=== PATIENT | female | born 1990 | race Caucasian/White ===

== ENCOUNTER 2022-04-25 11:05 | Emergency (ER) | payer MEDICAID, SELFPAY ==
[2022-04-25 11:26] VITALS: BP 145/89; PULSE 82; RESP 18; TEMP 36.6; O2SAT 99; BMI 21.9
--- NOTE | 2022-04-25 12:17 | ED_ITS ---
HPI - Skin/Abscess/Foreign Bdy General: Chief complaint: Skin/Abscess/Foreign Body Stated complaint: xavi came out Time Seen by Provider: 04/25/22 11:39 Source: patient Mode of arrival: ambulatory Limitations: no limitations History of Present Illness: 31-year-old female presents emergency room with dehiscence of a Pfannenstiel incision from approximately 7 to 10 days ago. Wound is dehisced at the midline and to the left of the midline nurse some bloody drainage no active bleeding she has no signs of infection no purulent drainage she denies any fever sweats or chills. complaint: other Onset (ago): day(s) Tetanus up to date: yes Severity: mild Relieving factors: none Exacerbating factors: none Associated symptoms: Deny arthralgias, chills, cough, fever(s), itching, myalgias, nausea, rigidity, short of breath or vomiting Treatments prior to arrival: bandages Review of Systems Const: Denies: fever(s) or chills ENMT: Denies: throat pain, ear or mastoid pain, nasal discharge or nasal congestion Card: Denies: chest pain, edema, dyspnea on exertion or orthopnea Resp: Denies: dyspnea, productive cough or non-productive cough GI: Denies: nausea or vomiting : Denies: flank pain, difficulty voiding, dysuria, urinary frequency or urinary urgency Skin/Breast: Denies: rash or pruritus [facility] ED PFSH: Medical History (Updated 04/25/22 @ 13:27 by Sergio Frank DO) No pertinent past medical history Surgical History (Updated 04/25/22 @ 12:19 by Sergio Frank DO) Previous section Social History (Updated 04/25/22 @ 12:19 by Sergio Frank DO) Smoking and tobacco status: never smoked Alcohol intake: never Physical Exam Const: COMMON NORMALS: no acute distress GENERAL APPEARANCE: cooperative and comfortable ORIENTATION/CONSCIOUSNESS: Yes awake, Yes oriented to person, Yes oriented to place and Yes oriented to time HENMT: COMMON NORMALS: normocephalic, atraumatic and hearing grossly normal bilaterally HEAD & SCALP: normocephalic and atraumatic Neck/C-Spine: COMMON NORMALS: no JVD Resp: COMMON NORMALS: normal respiratory effort, No retractions, No use of accessory muscles and clear to auscultation bilaterally AUSCULTATION: clear to auscultation bilaterally Cardio: COMMON NORMALS: no JVD, regular rate, regular rhythm and No murmurs present (Cardio) RATE: regular rate RHYTHM: regular rhythm GI: COMMON NORMALS: Soft to palpation and No hepatosplenomegaly present AUSCULTATION: Yes normoactive bowel sounds PALPATION: Yes Soft to palpation, No Tenderness to palpation present (GI), No Guarding due to palpation present (GI) and Yes No hepatosplenomegaly present Extremity: COMMON NORMALS: normal to inspection, capillary refill normal, no clubbing, cyanosis or edema, no calf tenderness and no pedal edema Neuro: SENSORIUM/ORIENTATION: Yes oriented to person, Yes oriented to place and Yes oriented to time Skin: OTHER: Wound dehiscence of Pfannenstiel incision at the midline to the left approximately 5 to 6 inches of open wound. Hematoma at the base with no active bleeding Xavi removed at the center and some the edges as well large amount of hematoma was removed there is hematoma extending underneath the xavi region undermining the entire incision. Initially closed loosely with sutures to prevent gaping but the sutures are loose enough to keep the skin edges from approximating. Course Vital Signs: Vital signs: Vital Signs Temperature 97.9 F 04/25/22 11:26 Pulse Rate 82 04/25/22 11:26 Respiratory Rate 18 04/25/22 11:26 Blood Pressure 145/89 04/25/22 11:26 Pulse Oximetry 99 04/25/22 11:26 MDM - Skin/Abscess/Foreign Bdy Medicial Decision Making Dr. Gallegos recommends wound packing with wet-to-dry and leaving the wound open. Patient given Ancef wound packed demonstrated to the patient's how to do this will discharge patient home on Keflex pain medications follow[facility]up with [facility] in [place]. Gallegos. Medical Records I reviewed the patient's medical records. Lab Data I reviewed the patient's lab results. Discharge Plan Discharge Patient Disposition: Home Clinical Impression: section wound complication, Hematoma Prescriptions: New cephalexin 500 mg capsule 500 mg PO TID 7 Days Qty: 21 0RF Percocet 5-325 mg tablet 1 tab PO Q6H PRN (Reason: pain) Qty: 20 0RF No Action Tylenol Ex Str Rapid Release 500 mg Tablet 500 mg PO Q4H PRN (Reason: Pain) 0RF ibuprofen 200 mg Tablet 400 mg PO Q4H PRN (Reason: Pain) 0RF Moremilk Special Blend 1 ml PO QID 0RF Discharge Orders: Discharge ED (Routine); Ordered 04/25/22 Ordered By: Sergio Frank Discharge Diet: Usual diet Discharge Activity: Resume usual activity Patient Instructions: Opioid Safety Activity Restrictions/Additional Instructions: Keep wound clean and dry. Apply topical antibiotic ointment to the edges. Keep dressing over the wound clean once daily. Call Dr. Muñoz's office to set up an appointment for Sunday morning at 8 AM. Case management make arrangements for you to see the wound care clinic. Coding Level of Care Code ED Food Quality Tester for Rik Fwchayo Exam Detailed
[2022-04-25] MEDS: ceFAZolin 1,000 mg SDV 1000 MG IM (13:50)
--- NOTE | 2022-04-25 14:21 | PC.NURSE ---
Dr. Frank administered 5ml of Lidocaine 1% with Epinephrine for local pain control during wound care procedure. Medication was delivered by pharmacist Rubina, and was charged as a stock med.
== END 2022-04-25 14:29 | disposition home or self-care (01) ==
PROVIDERS: Emergency Provider Family Medicine
DX: O90.0 Disruption of cesarean delivery wound (principal); L76.32 Postprocedural hematoma of skin and subcutaneous tissue following other procedure
CPT/HCPCS: 87070; 87075; 87205; 96372; 99284; J0690

== ENCOUNTER → 2022-05-09 14:31 | Outpatient (BNVA) | payer MEDICAID, SELFPAY | PROVIDERS: Visit Provider Nurse Practitioner Family | DX: T81.31XA Disruption of external operation (surgical) wound, not elsewhere classified, initial encounter (principal); Y83.8 Other surgical procedures as the cause of abnormal reaction of the patient, or of later complication, without mention of misadventure at the time of the procedure; I96 Gangrene, not elsewhere classified | CPT/HCPCS: 11042; A6237; A6250 ==

== ENCOUNTER → 2022-05-12 09:01 | Outpatient (BNVA) | payer MEDICAID, SELFPAY | PROVIDERS: Visit Provider Nurse Practitioner Family | DX: T81.31XS Disruption of external operation (surgical) wound, not elsewhere classified, sequela (principal); Y83.8 Other surgical procedures as the cause of abnormal reaction of the patient, or of later complication, without mention of misadventure at the time of the procedure | CPT/HCPCS: 99211 ==

== ENCOUNTER → 2022-05-30 09:26 | Outpatient (BNVA) | payer MEDICAID, SELFPAY | PROVIDERS: Visit Provider Nurse Practitioner Family | DX: T81.31XA Disruption of external operation (surgical) wound, not elsewhere classified, initial encounter (principal); Y83.8 Other surgical procedures as the cause of abnormal reaction of the patient, or of later complication, without mention of misadventure at the time of the procedure; I96 Gangrene, not elsewhere classified; L98.492 Non-pressure chronic ulcer of skin of other sites with fat layer exposed | CPT/HCPCS: 99213; A6021 ==